=== PATIENT | female | born 1980 | race American Indian/Alaskan Native ===

== ENCOUNTER 2017-04-02 07:29 | Outpatient (CLI) | payer OTHER | END 2017-04-02 09:40 | disposition home or self-care (01) | LOC: NST 07:29 | DX: Z34.03 Encounter for supervision of normal first pregnancy, third trimester (principal) ==

== ENCOUNTER 2017-05-08 11:59 | Inpatient (IN) | payer OTHER ==
[~2017-05-08] VITALS: Ht 157.5 cm; Wt 73.0 kg
[2017-05-11] MEDS ORDERED: LOVENOX40 MG/0.4 SUBCUTANEO (09:25)
[2017-05-11] MEDS ORDERED: ACETAMINOPHEN500 M1 PO (09:25)
[2017-05-11] MEDS ORDERED: DOCUSATE SODIU100 MG PO (09:25)
[2017-05-11] MEDS ORDERED: POM (MEDICAMENTO EN PO (09:25)
[2017-05-11] MEDS ORDERED: ANUCORT-HC25 MG RECTAL (09:25)
== END 2017-05-11 11:09 | disposition home or self-care (01) | DRG 775 ==
LOC: LDR 11:59 → SURG-SUITE 05-09 12:02
PROC: 4A1HXCZ Monitoring of Products of Conception, Cardiac Rate, External Approach (ICD-10-PCS; 2017-05-08)
PROC: 10E0XZZ Delivery of Products of Conception, External Approach (ICD-10-PCS; principal; 2017-05-09)
PROC: 3E033VJ Introduction of Other Hormone into Peripheral Vein, Percutaneous Approach (ICD-10-PCS; 2017-05-09)
PROC: 4A033R1 Measurement of Arterial Saturation, Peripheral, Percutaneous Approach (ICD-10-PCS; 2017-05-09)
DX: O99.113 Other diseases of the blood and blood-forming organs and certain disorders involving the immune mechanism complicating pregnancy, third trimester (principal); O99.12 Other diseases of the blood and blood-forming organs and certain disorders involving the immune mechanism complicating childbirth; D68.59 Other primary thrombophilia; D68.2 Hereditary deficiency of other clotting factors; E72.12 Methylenetetrahydrofolate reductase deficiency; Z3A.37 37 weeks gestation of pregnancy; Z37.0 Single live birth; O99.283 Endocrine, nutritional and metabolic diseases complicating pregnancy, third trimester